=== PATIENT | female | born 2000 | race Two or more races ===

== ENCOUNTER 2020-09-08 12:17 | Emergency (ER) | payer OTHER, SELFPAY ==
[~2020-09-08] VITALS: Ht 160 cm; Wt 80.5 kg
--- NOTE | 2020-09-08 13:41 | NUR ---
PT TO ROOM FROM LOBBY
--- NOTE | 2020-09-08 13:50 | NUR ---
REPORT RC'VD FROM JULIANA MAYO AND CARE OF PT ASSUMED.
--- NOTE | 2020-09-08 13:51 | NUR ---
THIS IS A 19 YEAR OLD FEMALE WHO C/O OF RIGHT SIDED FACE PAIN AND SWELLING.
[2020-09-08] MEDS ORDERED: HYDROcodone/APAP 5/325 TABLET ONE (14:10)
--- NOTE | 2020-09-08 14:16 | NUR ---
PT MEDICATED FOR DENTAL PAIN PER ORDERS. UNDERSTANDS POC.
[2020-09-08 14:20] VITALS: BP 135/93
--- NOTE | 2020-09-08 14:20 | NUR ---
D/C INSTRUCTIONS, MEDS & F/U APPT RV'WD WITH PT, SHE VERBALIZES UNDERSTANDING. RX GIVEN X1. WORK NOTE PROVIDED. DENTAL REFERRAL LIST PROVIDED. PT AMBULATED OUT WITH BOYFRIEND.
[2020-09-08] MEDS ORDERED: HYDROcodone/APAP 5/325 TABLET PO ONE (14:30)
== END 2020-09-08 14:22 | disposition home or self-care (01) ==
LOC: ED 14:15
DX: K08.89 Other specified disorders of teeth and supporting structures (principal); E03.9 Hypothyroidism, unspecified
CPT/HCPCS: 99283